=== PATIENT | male | born 1935 | race Caucasian/White ===

== ENCOUNTER 2018-08-07 05:38 | Day surgery (SDC) | payer MEDICARE, SELFPAY ==
[2018-07-31 13:12] VITALS: BP 123/77; PULSE 72; RESP 16; TEMP 37.1; O2SAT 96; BMI 35.4
[2018-07-31 15:17] LABS: Hematocrit 49.2 % (40-54); Mean Corp Hgb Conc 32.5 g/gl (32-36); Mean Corpuscular Hgb 29.6 pg (27.0-32.0); Mean Corpuscular Volume 90.9 fL (80-94); Platelet Count 120 K/mm3 (150-450); RBC Distribution Width CV 15.7 % (11.6-14.6); RBC Distribution Width SD 52.2 fl (35.1-43.9); Red Blood Count 5.41 M/mm3 (4.6-6.2); White Blood Count 7.6 K/mm3 (4.4-11.0)
[2018-07-31 15:25] LABS: Scan Indicated on CBC? Y/N NO
[2018-08-07] VITALS (12 sets, daily range): BP systolic 105–132; BP diastolic 61–91; PULSE 57–98; RESP 14–19; TEMP 36.2–37.2; O2SAT 88–97; BMI 35.4; BMI 37.3
--- NOTE | 2018-08-07 07:30 | PROS_PTH ---
PATIENT: LUZ MCMAHON LOC: [facility] [place] U#:[id number] AGE/SX: 83/M ROOM: RE08/07/[address]: Dr. 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 Fragments of stone (gross only). JARAD:ed 08/08/18 MICROSCOPIC DESCRIPTION Slides are reviewed. GROSS DESCRIPTION Received is one container labeled with the patient's name and designated prostate tissue. The specimen consists of multiple irregular fragments of pink-flores, rubbery, soft tissue that in aggregate weigh 18.8 gm and measure in aggregate 6 x 5 x 2.5 cm. Also present in the container are multiple fragments of stone mixed with soft tissue measuring in aggregate 4 x 3.5 x 1.5 cm. Almost the entire soft tissue is submitted in 12 cassettes. The stones are for gross identification only. / JARAD:ed 08/07/18 TC:5 CPT: 87564
[2018-08-07] MEDS: Cefazolin 2 GM in 0.9% Normal Saline 100 ML IV (07:36)
[2018-08-07] MEDS: Lubricating Jelly 60 GM Tube 30 GM TOPICAL (07:36)
--- NOTE | 2018-08-07 09:29 | PCM.OPRPT ---
Report of Operation Date of Procedure: 08/07/18 Pre-Operative Diagnosis: Bladder stones and BPH with obstruction Post-Operative Diagnosis: Same Surgery/Procedure Performed:: Cystoscopy, cystolitholapaxy and laser bladder stones and removal of fragments, transurethral resection of the prostate. Description of Surgical Findings:: 83-year-old male has a history of BPH with obstruction presented to the office for consultation regarding his condition he had a prior laser surgery of the prostate and also attempted removal of bladder stones however the procedure did not really resolve his problem when I saw him in the office we did a cystoscopy and was found to have large multiple bladder stones and significant BPH with obstruction fairly large prostate so recommended we proceed with a transurethral resection of the prostate at the same time we will also get every move the bladder stones with a laser performed cystolitholapaxy. Patient was taken back to the operating room after smooth induction of general anesthesia he was placed supine on the table he was placed in dorsal lithotomy position the penis penis and testicles were prepped and draped in usual fashion, I then went into the bladder with a 26 Hebrew continuous flow resectoscope once inside the bladder identified multiple stones within the bladder I then switched out to the laser bridge and use 1000 laser fiber and then took about an hour to laser out all the stones within the bladder once all the stones were lasered out a little tiny pieces all these pieces were removed then I switched over to the resectoscope he had some tissue laser over the bladder neck with had a significant amount of tissue still within the prostate resected the right lobe of the prostate resect the left lobe the prostate and then resected the roof he had a lot of tissue from the roof and then after carefully resected everything back to the verumontanum and this was over to the Fay out the bladder chips and then switch over to the button and vaporized and smooth out the channel to have a nice smooth channel really at the button a lot of tissue in the roof of the prostate in the right lateral lobe and then did a flow test had a nice wide open, flow sphincter was intact, no resection past the Lorin his anesthesia was reversed but a 22 Hebrew catheter into the bladder and this was started on continuous bladder irrigation and patient anesthetic was reversed taken back to PACU in good condition. Type of Anesthesia:: General Drains: [address] - Admit VTE Documentation VTE Present on Admission: No VTE Mechan Device Prophylaxis: SCD's VTE Pharm Prophylaxis ordered?: No
[2018-08-07] MEDS: 0.9% Normal Saline 1,000 ML 75 ML IV (13:17)
[2018-08-07] MEDS: CLARIFY ORDER NOTE (13:35)
[2018-08-07] MEDS: Ciprofloxacin 500 MG Tablet PO ×2 (17:56→21:00)
[2018-08-07] MEDS: Docusate Sodium 100 MG Capsule PO (17:56)
[2018-08-07] MEDS: Pantoprazole Sodium 40 MG Tablet PO (17:56)
[2018-08-07] MEDS: Furosemide 40 MG Tablet PO (17:56)
[2018-08-07] MEDS: Acetaminophen 325 MG Tablet PO (19:58)
[2018-08-07] MEDS: Metoprolol(XL)Succ 50 MG Tablet PO (21:00)
[2018-08-07] MEDS: Atorvastatin Calcium 20 MG Tablet PO (21:00)
--- NOTE | 2018-08-07 21:55 | NURSING ---
pt stood at side of bed. pt tolerated it well
[2018-08-08] MEDS: 0.9% Normal Saline 1,000 ML 75 ML IV (02:09)
[2018-08-08 02:53] VITALS: BP 124/73; PULSE 69; RESP 17; TEMP 36.3; O2SAT 98
--- NOTE | 2018-08-08 07:41 | PCM.DC.URO ---
Discharge Diet: Light diet - advance as tolerated Discharge Activity: Return to Normal Activity May shower in (days): 1 Call your doctor if your incision/area has: Sudden Increased Bleeding Call your doctor if you observe: Inability to urinate, Uncontrolled pain Suture Line Care: Avoid Pulling/Pushing, Avoid Pinching/Bending Instructions: Transurethral Resection of the Prostate (TURP): Home Recovery Allergies/Adverse Reactions: Allergies Penicillins [PCN] Allergy (Verified 07/31/18 13:06) Hives Medications to take at Discharge Antibiotc 07/31/18 Aspirin E.C. [Ecotrin] 81 mg PO DAILY@0800 07/31/18 C,E,Zinc,Copper 11/Wladn4p/Lut [Ocuvite Adult 50 Plus Softgel] 1 each PO DAILY 07/31/18 Furosemide [Lasix] 40 mg PO DAILY 07/31/18 Garlic 1,000 mg PO DAILY 07/31/18 Iron Carbonyl [Feosol] 27 mg PO QODAY 07/31/18 Metoprolol(XL)Succ [Toprol Xl (Beta Davon)] 50 mg PO BID 07/31/18 Multivitamin [Daily Multiple Vitamin] 1 each PO DAILY 07/31/18 Nitroglycerin [Nitrostat] 0.4 mg SUBLINGUAL Q5M PRN 07/31/18 Potassium 99 mg PO DAILY 07/31/18 Simvastatin [Zocor] 40 mg PO QHS 07/31/18 Ciprofloxacin [Cipro] 500 mg PO BID #14 tab 08/07/18 Isosorbide Mononitrate [Isosorbide Mononitrate ER] 30 mg PO DAILY 08/07/18 The following prescriptions were given: Ciprofloxacin [Cipro] 500 mg PO BID #14 tab Primary Care Physician: Gina Chapman NP-C [Primary Care Provider] - Test Results: Test results from this visit will be discussed in further detail at your follow-up appointment, if applicable. Please Follow Up With: Joby Barraza MD When: please call to make an appointment.
[2018-08-08 08:32] VITALS: BP 123/88; PULSE 76; RESP 16; TEMP 36.5; O2SAT 95
[2018-08-08] MEDS: Furosemide 40 MG Tablet PO (09:23)
[2018-08-08] MEDS: Pantoprazole Sodium 40 MG Tablet PO (09:23)
[2018-08-08] MEDS: Docusate Sodium 100 MG Capsule PO (09:23)
[2018-08-08] MEDS: Isosorbide Mononitrate 30 MG Tablet PO (09:23)
[2018-08-08] MEDS: Ciprofloxacin 500 MG Tablet PO (09:23)
[2018-08-08 09:24] VITALS: PULSE 80
[2018-08-08] MEDS: Metoprolol(XL)Succ 50 MG Tablet PO (09:24)
[2018-08-08 11:20] VITALS: BP 116/63; PULSE 80; RESP 16; TEMP 36.4; O2SAT 94
== END 2018-08-08 12:36 | disposition home or self-care (01) ==
LOC: SDC 05:40 → AC 05:40 → MS3 08:21
PROVIDERS: Family Provider Nurse Practitioner Family; PCP Nurse Practitioner Family; Visit Provider Urology
PROC: (CPT 52318; principal; 2018-08-07 07:20)
PROC: (CPT 52318; 2018-08-07 07:20)
DX: N40.1 Benign prostatic hyperplasia with lower urinary tract symptoms (principal); N41.0 Acute prostatitis; N41.1 Chronic prostatitis; R31.0 Gross hematuria; R33.8 Other retention of urine; R35.0 Frequency of micturition; N13.8 Other obstructive and reflux uropathy; N21.0 Calculus in bladder; Z23 Encounter for immunization; Z71.3 Dietary counseling and surveillance; I25.10 Atherosclerotic heart disease of native coronary artery without angina pectoris; E78.5 Hyperlipidemia, unspecified; I15.8 Other secondary hypertension; I48.91 Unspecified atrial fibrillation; I10 Essential (primary) hypertension; E78.00 Pure hypercholesterolemia, unspecified; I45.10 Unspecified right bundle-branch block; G47.30 Sleep apnea, unspecified; H91.90 Unspecified hearing loss, unspecified ear; Z79.82 Long term (current) use of aspirin; Z79.01 Long term (current) use of anticoagulants; Z79.899 Other long term (current) drug therapy; Z87.442 Personal history of urinary calculi
CPT/HCPCS: 00914; 52318; 52601; 36415; 85027; 88305; 97802; G0008; J7030; J7120; 90686; J2405